=== PATIENT | female | born 1970 | race Caucasian/White ===

== ENCOUNTER 2020-08-01 09:18 | Emergency (ER) | payer MEDICARE, MEDICAID, SELFPAY ==
[2020-08-01 09:30] VITALS: BP 156/124; PULSE 74; RESP 16; TEMP 36.2; O2SAT 100
--- NOTE | 2020-08-01 09:38 | ED.EYEPROB ---
HPI - Eye Problem General Chief complaint: Eye Problems Stated complaint: eye pain/swelling/redness Time Seen by Provider: 08/01/20 09:39 Source: patient and RN notes reviewed Mode of arrival: ambulatory Limitations: no limitations History of Present Illness HPI Narrative: 49-year-old female presents concern for left eye redness, pain, crusty drainage for 3 days. Reports her eye was crusted shut when she woke up in the morning last 2 days, she had to use a warm wet washcloth to remove the crust. She denies wearing contact lenses, denies any eye injury, foreign body. She denies any cold symptoms, rhinorrhea, nasal congestion, fever, vision changes. MD chief complaint: eye redness Related Data Allergies Allergy/AdvReac Type Severity Reaction Status Date / Time Iodinated Contrast Media Allergy Severe throat Verified 08/01/20 09:46 closes latex Allergy Intermediate rash, Verified 08/01/20 09:46 throat feels weird Penicillins Allergy Mild rash Verified 08/01/20 09:46 amoxicillin Allergy Unknown THROAT Verified 08/01/20 09:46 SWELLING Dried Fruit Allergy Severe THROAT Uncoded 08/01/20 09:46 SWELLING Review of Systems Review of Systems: Narrative: CONSTITUTIONAL: Denies malaise, chills, sweats, or fever. EYES: Denies visual changes. Reports left eye irritation, redness, crusting discharge. ENT: Denies rhinorrhea, congestion, sinus pain, otalgia or sore throat. CARDIOVASCULAR: Denies chest pain, palpitations, or edema. RESPIRATORY: Denies cough or dyspnea. SKIN: Denies rash or itching. NEUROLOGIC: Denies headache. All systems reviewed & are unremarkable except as noted in HPI and below PMFSH Surgical History Surgical History Bariatric surgery status H/O: hysterectomy H/O: knee surgery History of cholecystectomy Family History Family History Mother Patient's mother is in good health Father Patient's father is in good health Social History Social History Smoking status: Former smoker Second hand tobacco smoke exposure: No Smoking end date: 07/26/12 Alcohol intake: never Gender identity (if verbalized by the patient): Female Comments At time of signature, agree with nursing past medical, surgical, social and family history. There is no relevant family history pertinent to the presenting complaint Exam Narrative: Exam Narrative: GENERAL: Well-appearing, well-nourished, and in no acute distress. HEAD: Normocephalic, atraumatic. EYES: PERRLA and EOMI. No nystagmus. Left eye sclera, conjunctivae injected, drainage noted. ENT: Nares clear. Mucous membranes moist NECK: Supple. CHEST: No respiratory distress. Speaks in full sentences. HEART: Regular rate and rhythm. SKIN: Warm, dry, no rash. NEURO: Alert and oriented x3. PSYCH: Normal mood and affect Course Course Emergency Course: Patient is aware of diagnosis, understands and agrees to treatment plan. Anticipatory guidance given. Patient agrees to follow-up as directed and is aware of reasons to seek care at the emergency department. Portions of this record may have been created with voice recognition software Vital Signs Vital signs: Vital Signs Temperature 97.2 F L 08/01/20 09:30 Pulse Rate 74 08/01/20 09:30 Respiratory Rate 16 08/01/20 09:30 Blood Pressure 156/124 H 08/01/20 09:30 Pulse Oximetry 100 08/01/20 09:30 Temperature 97.2 F L 08/01/20 09:30 Pulse Rate 74 08/01/20 09:30 Respiratory Rate 16 08/01/20 09:30 Blood Pressure 156/124 H 08/01/20 09:30 Pulse Oximetry 100 08/01/20 09:30 Reviewed. MDM - Eye Problem MDM Narrative Medical decision making narrative: Consideration of the following conditions may be warranted for the presenting problem, they are not final diagnoses: Bacterial conjunctivitis, allergic conjuncti
== END 2020-08-01 09:59 | disposition home or self-care (01) ==
PROVIDERS: Emergency Provider Nurse Practitioner; PCP Internal Medicine
DX: H10.32 Unspecified acute conjunctivitis, left eye (principal); Z87.891 Personal history of nicotine dependence; Z98.84 Bariatric surgery status
CPT/HCPCS: 99213; G0463

== ENCOUNTER 2020-09-16 09:07 | Outpatient (CLI) | payer MEDICARE, MEDICAID, SELFPAY ==
[2020-09-16 09:26] LABS: Basophils Absolute Auto 0.1 K/mm3 (0.0-0.1); Basophils Percent Auto 0.9 % (0.2-1.2); Eosinophils Absolute Auto 0.1 K/mm3 (0-0.3); Eosinophils Percent Auto 1.7 % (0-4.4); Hematocrit 40.1 % (37.0-47.0); Hemoglobin 12.7 g/dL (12.0-15.0); Immature Granulocyte Absolute 0.03 K/mm3 (0.00-0.031); Immature Granulocyte Percent A 0.4 % (0-0.5); Lymphocytes Percent Auto 21.8 % (18.3-44.2); Mean Corpuscular HGB Conc 31.7 g/dl (32-36); Mean Corpuscular Hemoglobin 26.7 pg (26-34); Mean Corpuscular Volume 84.4 fl (80-100); Mean Platelet Volume 8.9 fl (7.4-10.4); Monocytes Absolute Auto 0.7 K/mm3 (0.1-0.6); Monocytes Percent Auto 8.3 % (2.6-8.5); Neutrophils Absolute Auto 5.2 K/mm3 (1.3-6.7); Neutrophils Percent Auto 66.9 % (45.5-73.1); Platelet Count Result 359 k/mm3 (150-375); Red Blood Count 4.75 M/mm3 (4.2-5.4); Red Cell Distribution Width 14.7 % (11.5-14.5); White Blood Count 7.8 K/mm3 (4.5-10.0)
[2020-09-16 09:49] LABS: Alanine Aminotransferase 23 U/L (4-35); Albumin Level 3.9 g/dL (3.5-5.1); Alkaline Phosphatase 132 U/L (38-126); Anion Gap 3 mmol/L (8-16); Aspartate Amino Transferase 30 U/L (14-36); Bilirubin,Total 0.6 mg/dL (0.2-1.3); Blood Urea Nitrogen 9 mg/dL (7-17); Calcium 8.5 mg/dL (8.4-10.2); Carbon Dioxide 30 mmol/L (22-30); Chloride 106 mmol/L (98-107); Cholesterol 181 mg/dL (0-200); Estimated Glomerular Filt Rate > 60; Glucose 99 mg/dL (65-105); HDL Direct 58 mg/dL; Potassium 3.8 mmol/L (3.4-5.0); Sodium 139 mmol/L (137-145); Triglycerides 123 mg/dL (<150)
[2020-09-16 10:00] LABS: LDL Cholesterol Direct 100 mg/dL
[2020-09-16 10:55] LABS: Folic Acid 14.6 ng/mL (2.76->20)
== END 2020-09-16 09:08 | disposition home or self-care (01) ==
PROVIDERS: PCP Internal Medicine; Visit Provider Internal Medicine
DX: E53.8 Deficiency of other specified B group vitamins (principal); I10 Essential (primary) hypertension; R53.83 Other fatigue
CPT/HCPCS: 36415; 80053; 80061; 82607; 82746; 84443; 85025

== ENCOUNTER 2021-12-08 06:40 | Outpatient (CLI) | payer MEDICARE, SELFPAY ==
[2021-12-08 07:16] LABS: Basophils Absolute Auto 0.1 K/mm3 (0.0-0.1); Basophils Percent Auto 0.7 % (0.2-1.2); Eosinophils Absolute Auto 0.1 K/mm3 (0-0.3); Eosinophils Percent Auto 1.9 % (0-4.4); Hematocrit 39.3 % (37.0-47.0); Hemoglobin 12.4 g/dL (12.0-15.0); Immature Granulocyte Absolute 0.02 K/mm3 (0.00-0.031); Immature Granulocyte Percent A 0.3 % (0-0.5); Lymphocytes Percent Auto 23.4 % (18.3-44.2); Mean Corpuscular HGB Conc 31.6 g/dl (32-36); Mean Corpuscular Hemoglobin 26.4 pg (26-34); Mean Corpuscular Volume 83.8 fl (80-100); Mean Platelet Volume 9.5 fl (7.4-10.4); Monocytes Absolute Auto 0.7 K/mm3 (0.1-0.6); Monocytes Percent Auto 9.5 % (2.6-8.5); Neutrophils Absolute Auto 4.7 K/mm3 (1.3-6.7); Neutrophils Percent Auto 64.2 % (45.5-73.1); Platelet Count Result 326 k/mm3 (150-375); Red Blood Count 4.69 M/mm3 (4.2-5.4); Red Cell Distribution Width 14.5 % (11.5-14.5); White Blood Count 7.3 K/mm3 (4.5-10.0)
[2021-12-08 07:29] LABS: Alanine Aminotransferase 13 U/L (6-35); Albumin Level 3.6 g/dL (3.5-5.1); Alkaline Phosphatase 122 U/L (38-126); Anion Gap 1 mmol/L (8-16); Aspartate Amino Transferase 24 U/L (14-36); Bilirubin,Total 0.5 mg/dL (0.2-1.3); Blood Urea Nitrogen 8 mg/dL (7-17); Calcium 8.4 mg/dL (8.4-10.2); Carbon Dioxide 29 mmol/L (22-30); Chloride 108 mmol/L (98-107); Cholesterol 168 mg/dL (0-200); Estimated Glomerular Filt Rate > 60; Glucose 91 mg/dL (65-110); HDL Direct 51 mg/dL; Sodium 138 mmol/L (137-145); Triglycerides 72 mg/dL (<150)
[2021-12-08 07:40] LABS: LDL Cholesterol Direct 86 mg/dL
== END 2021-12-08 06:41 | disposition home or self-care (01) ==
PROVIDERS: PCP Internal Medicine; Visit Provider Internal Medicine
DX: R53.83 Other fatigue (principal); R73.9 Hyperglycemia, unspecified; I10 Essential (primary) hypertension; E53.8 Deficiency of other specified B group vitamins; R74.8 Abnormal levels of other serum enzymes
CPT/HCPCS: 36415; 80053; 80061; 84443; 85025

== ENCOUNTER 2023-02-18 09:50 | Outpatient (CLI) | payer MEDICARE, MEDICAID, SELFPAY ==
[2023-02-18 10:10] LABS: Basophils Absolute Auto 0.1 K/mm3 (0.0-0.1); Basophils Percent Auto 1.2 % (0.2-1.2); Eosinophils Absolute Auto 0.1 K/mm3 (0-0.3); Eosinophils Percent Auto 1.5 % (0-4.4); Hematocrit 42.3 % (37.0-47.0); Immature Granulocyte Absolute 0.02 K/mm3 (0.00-0.031); Immature Granulocyte Percent A 0.3 % (0-0.5); Lymphocytes Absolute Auto 1.57 K/mm3 (0.9-3.2); Mean Corpuscular HGB Conc 33.1 g/dl (32-36); Mean Corpuscular Hemoglobin 29.7 pg (26-34); Mean Corpuscular Volume 89.6 fl (80-100); Mean Platelet Volume 9.9 fl (7.4-10.4); Monocytes Absolute Auto 0.4 K/mm3 (0.1-0.6); Monocytes Percent Auto 6.9 % (2.6-8.5); Neutrophils Absolute Auto 3.7 K/mm3 (1.3-6.7); Neutrophils Percent Auto 63.1 % (45.5-73.1); Platelet Count Result 275 k/mm3 (150-375); Red Blood Count 4.72 M/mm3 (4.2-5.4); Red Cell Distribution Width 14.1 % (11.5-14.5); White Blood Count 5.8 K/mm3 (4.5-10.0)
[2023-02-18 10:20] LABS: Alanine Aminotransferase 25 U/L (6-35); Albumin Level 4.1 g/dL (3.5-5.1); Alkaline Phosphatase 91 U/L (38-126); Anion Gap 8 mmol/L (8-16); Aspartate Amino Transferase 27 U/L (14-36); Blood Urea Nitrogen 8 mg/dL (7-17); Calcium 8.9 mg/dL (8.4-10.2); Carbon Dioxide 29 mmol/L (22-30); Chloride 101 mmol/L (98-107); Cholesterol 155 mg/dL (0-200); Estimated Glomerular Filt Rate > 60; Glucose 81 mg/dL (65-110); HDL Direct 56 mg/dL; Potassium 3.9 mmol/L (3.4-5.0); Sodium 138 mmol/L (137-145); Triglycerides 61 mg/dL (<150)
[2023-02-18 10:31] LABS: LDL Cholesterol Direct 70 mg/dL
[2023-02-18 11:26] LABS: Folic Acid 6.4 ng/mL (2.76->20)
== END 2023-02-18 09:51 | disposition home or self-care (01) ==
PROVIDERS: PCP Internal Medicine; Visit Provider Physician Assistant
DX: I10 Essential (primary) hypertension (principal); R73.9 Hyperglycemia, unspecified; E53.8 Deficiency of other specified B group vitamins; R53.83 Other fatigue
CPT/HCPCS: 36415; 80053; 80061; 82607; 82746; 84443; 85025

== ENCOUNTER 2023-12-24 10:18 | Outpatient (CLI) | payer MEDICARE, MEDICAID, SELFPAY ==
--- NOTE | 2023-12-24 10:28 | ECG_ITS ---
[facility] [address] Test Date: 2023-12-24 Pat Name: Gaby Jiang Department: Room: Gender: F Welding Foreman: : 1970 Requested By: Porfirio Cruz Order Number: [id number] Reading MD: Duc Sanchez D.O. Measurements Intervals [place] Rate: 57 P: 48 NV: 160 QRS: -1 QRSD: 89 T: 13 QT: 448 QTc: 436 Interpretive Statements SINUS BRADYCARDIA LOW QRS VOLTAGE IN PRECORDIAL LEADS CONSIDER INFERIOR INFARCT, AGE INDETERMINATE ABNORMAL ECG No previous ECG available for comparison Electronically Signed On 12-24-2023 11:43:52 CDT by Duc Sanchez D.O.
== END 2023-12-24 10:19 | disposition home or self-care (01) ==
LOC: ANHCARD 10:21
PROVIDERS: PCP Internal Medicine; Visit Provider Anesthesiology
DX: Z01.818 Encounter for other preprocedural examination (principal); I10 Essential (primary) hypertension; R94.31 Abnormal electrocardiogram [ECG] [EKG]
CPT/HCPCS: 93005

== ENCOUNTER 2023-12-30 09:35 | Day surgery (SDC) | payer MEDICARE, MEDICAID, SELFPAY ==
--- NOTE | 2023-12-22 09:04 | SUR.PREOP ---
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 Pt states she has had no neurological symptoms since and does not follow with neurology. Pt states was told by neurology to contact them if ever started having neurological symptoms. Pt's medical history also states HTN and a previous MD. Pt states no longer has HTN and is not on medication for BP. Pt states as far as the MD that 20 years ago had an episode of chest pain and had a cardiac cath done which pt states showed no blockages. No chest pain or cardiac symptoms since. Pt does not follow with cardiology. Pt states no other medical problems and takes no home medications. This RN reviewed Pt's medical history with Dr. Kelly who states pt okay to have procedure done at [facility] but would like a pre-op EKG. Pt notified of EKG order and states will go get. Pt states no further questions at this time.
--- NOTE | 2023-12-29 07:42 | SUR.PREOP ---
Dr. Varner reviewed Pt's EKG results for pre-op testing regarding surgery for 12/30/23 at [facility]. Per Dr. Varner, Pt cleared for surgery at [facility].
--- NOTE | 2023-12-30 07:02 | WPDHPUPDATE1 ---
History and Physical Update Update Date/Time: 12/30/23 07:02 Patient seen and examined in pre-operative holding area. No interval change in medical history or symptoms. Patient recalls previous discussion of benefits and alternatives to procedure. Continues to desire to proceed with left volar wrist ganglion cyst excision. Reviewed procedure, post-op expectations and risks including but not limited to bleeding, infection, injury to tendon/nerve/vessel, decreased hand function, stiffness, RSD, no change or worsening of symptoms, recurrence. I discussed the possible use of assistants and their participation in the case. Patient stated understanding and signed the consent form wishing to proceed.
--- NOTE | 2023-12-30 07:03 | P.OP_ITS ---
Procedure Note - Detailed Date of Procedure 12/30/23 Pre-op Diagnosis Ganglion Cyst Left Wrist Post-op Diagnosis Same Procedure Performed left volar wrist ganglion cyst excision Surgeon Mirela Gutierrez MD Consumer Relations Complaint Clerk dallin hernandez pa-c Anesthesia MAC Description of Procedure INFORMED CONSENT: The patient was seen and examined and marked in the pre-op area.? The patient signed the consent form. PROCEDURE IN DETAIL:The patient taken back to OR on the stretcher in supine position. Time out performed with anesthesia, surgeon and staff agreeing on patient's name site and surgery to be performed SCDs were placed on the lower extremities and inflated. A tourniquet was placed on {left} upper extremity and antibiotics given IV After anesthesia administered sedation I injected {6}cc 1%lido with epi and 0.5% marcaine plain at the operative site The?{left upper extremity}?was prepped and draped in sterile fashion the??{left upper extremity} was? exsanguinated with Esmarch bandage and tourniquet inflated to 250mmHg I proceeded with making a longitudinal incision over the left wrist mass through skin and dermis with a 15 blade scalpel. I proceeded with using Littler scissors to spread to the subcutaneous tissue down to the cyst which was notably adherent to and overlying the radial artery. I proceeded with circumferential dissection around ganglion cyst down to the radiocarpal joint noting the stalk of the cyst went radial to the radial artery. The radial artery was protected throughout the procedure. I transected the stalk of the cyst at its base with bipolar cautery. I irrigated with normal saline. I proceeded with repairing the capsular defect with 4-0 Vicryl suture. 4-0 Monocryl was used for dermis and subcuticular closure. A dressing of Dermabond, 4x4, franklin, and a volar splint was applied for patient safety, security, and comfort and secured with an junior bandage after the tourniquet was let down noting the hand was warm and well perfused. The patient was then awaken from anesthesia and transferred to the recovery room in stable condition.? Complications - none EBL- 2cc Disposition - home in stable conditions dallin hernandez pa-c was essential for positioning, retraction, closure and dressing placement [facility] Billing Surgery - Charge Forward: Surgery Billing ([id number] for dallin)
[2023-12-30 10:05] VITALS: BP 143/84; PULSE 64; RESP 12; TEMP 37.2; O2SAT 99
--- NOTE | 2023-12-30 10:10 | WPDANESEPPF ---
Anes - Initial Pre Proc Eval Procedure: Operation Date: 12/30/23 11:30 Proposed Procedures p Excision Ganglion Cyst Left Wrist - Mirela Gutierrez MD Date/Time: 12/30/23 10:10 Surgeon: Mirela Gutierrez MD Pre Op Diagnosis: Ganglion Cyst Left Wrist Patient Data Age: 53 Gender: F Height: 1.55 m Weight: 60.25 kg Last Vital Signs Temp 37.2 C 12/30/23 10:05 Pulse 64 12/30/23 10:05 Resp 12 12/30/23 10:05 BP 143/84 H 12/30/23 10:05 Pulse Ox 99 12/30/23 10:05 O2 Del Method Room Air 12/30/23 10:05 Allergies Allergy/AdvReac Type Severity Reaction Status Date / Time Iodinated Contrast Media Allergy Severe throat Verified 12/30/23 10:02 closes latex Allergy Intermediate rash, Verified 12/30/23 10:02 throat feels weird Penicillins Allergy Mild rash Verified 12/30/23 10:02 amoxicillin Allergy Unknown THROAT Verified 12/30/23 10:02 SWELLING Dried Fruit Allergy Severe THROAT Uncoded 12/30/23 10:02 SWELLING Home Medications Medication Instructions Recorded Confirmed Type tramadol 50 mg tablet 50 mg PO Q6H PRN pain #12 tabs 12/30/23 Rx Patient hx anesthesia problems: none Family hx anesthesia problems: none Results Review: All pre-operative results and documents have been reviewed as part of the pre-operative evaluation. [facility] Past Medical History Medical History Anxiety and depression Bowel trouble Brain tumor inoperable brain tumor age 25 Breast asymmetry History of heart attack Screening mammogram, encounter for Surgical History Surgical History Bariatric surgery status (~2009) H/O: hysterectomy (~2010) H/O: knee surgery (~2010) History of cholecystectomy Family History Family History Mother Patient's mother is in good health Hypertension Diabetes mellitus type 2 Father Patient's father is in good health Social History Social History Smoking status: Never smoker Second hand tobacco smoke exposure: No Smoking end date: 07/26/12 Alcohol intake: never Substance use: never Substance use type: does not use Do You Feel Safe in your Home?: Yes Lack of Transportation: No Lack of Food: Never True Current Housing: I Have Housing Concerned About Future Housing: No Difficulty Paying Gas/Electric Bills: No Difficulty Paying for Meds: No Currently Unemployed: No Education: High School Diploma/GED Difficulty w/ Childcare or Family Care: No Living arrangements: other Additional living arrangements comments: single Occupation/Education: unemployed Additional occupation/education comments: disabled Gender identity (if verbalized by the patient): Female Sexual Orientation (if Verbalized by the Patient): Straight or Heterosexual Anes - Eval Final PreProcedure Day of Procedure 12/30/23 10:10 Patient weight: normal Heart: regular rate and rhythm Lungs: clear to auscultation Airway: Mallampati scale class II Neurological: alert and oriented Last oral intake: >/= 8 hours ASA classification: III Emergent: no Anesthetic plan: proceed Anesthesia type and monitoring: general GIVS and standard monitoring Results Review: All pre-operative results and documents have been reviewed as part of the pre-operative evaluation. Informed Consent: The patient's anesthetic plan and its attendant risks and benefits were discussed with the patient/family/POA. Questions were solicited and answers provided to the satisfaction of the patient/family/POA.
[2023-12-30] MEDS: CLINDAMYCIN 900 MG/NS 50 ML 900 MG/50 ML PIGGYBACK 50 MG IVPB (10:28)
[2023-12-30] MEDS: LACTATED RINGERS 1,000 ML 30 ML IV CONT (10:30)
--- NOTE | 2023-12-30 10:32 | SUR.PREOP ---
Late note 12/30/[address] Gutierrez regarding pt's allergies and what pre-op antibiotic he would like to order. Per Dr. Gutierrez pt to get 900mg of Clindamycin as pre-op antibiotic.
[2023-12-30] MEDS: LIDO 1%/EPINEPHRINE 1:100,000 10 ML VIAL 3 ML INFILTRATE (11:17)
[2023-12-30] MEDS: BUPivacaine HCL 0.5% 10 ML AMP INFILTRATE (11:17)
[2023-12-30 11:39] VITALS: BP 124/82; PULSE 68; RESP 16; O2SAT 97
[2023-12-30 12:09] VITALS: BP 144/92; PULSE 58; RESP 20; O2SAT 100
--- NOTE | 2023-12-30 12:19 | WPDANESPN ---
Anes - Prog Note Post-Op Date/Time: 12/30/23 12:19 Cardiovascular status: normal Respiratory status: normal Airway patency: baseline Mental status: baseline Post-Op hydration status: normal Vital Signs: Last Vital Signs Temp 37.2 C 12/30/23 10:05 Pulse 64 12/30/23 10:05 Resp 12 12/30/23 10:05 BP 143/84 H 12/30/23 10:05 Pulse Ox 99 12/30/23 10:05 O2 Del Method Room Air 12/30/23 10:05 Pain Score (VAS): 0 Patient Feedback: Patient satisfied with anesthetic care.
[2023-12-30 12:24] VITALS: BP 144/91; PULSE 59; RESP 20; O2SAT 99
== END 2023-12-30 12:42 | disposition home or self-care (01) ==
PROVIDERS: PCP Internal Medicine; Visit Provider Plastic Surgery
PROC: (CPT 25111; principal; 2023-12-30 11:30)
DX: M67.432 Ganglion, left wrist (principal)
CPT/HCPCS: 25111

== ENCOUNTER 2023-12-30 11:21 | Outpatient (NON) | payer MEDICARE, MEDICAID, SELFPAY | END 2023-12-30 11:22 | disposition home or self-care (01) | PROVIDERS: PCP Internal Medicine; Visit Provider Plastic Surgery | DX: M67.432 Ganglion, left wrist (principal) | CPT/HCPCS: 88305 ==

== ENCOUNTER 2025-03-11 16:49 | Emergency (ER) | payer MEDICARE, MEDICAID, SELFPAY ==
[2025-03-11 16:59] VITALS: BP 148/88; RESP 16; TEMP 36.8; O2SAT 97
--- NOTE | 2025-03-11 17:39 | PC.NURSE ---
EDP Dr. Malagon gave verbal order for silver nitrate
--- NOTE | 2025-03-11 19:42 | ED_ITS ---
HPI - Epistaxis General Chief complaint: Epistaxis Stated complaint: epistaxis Time Seen by Provider: 03/11/25 17:15 History of Present Illness HPI Narrative: Patient is a 54-year-old female who presents ER with epistaxis. Right nose. Began just prior to arrival. Underwent a procedure earlier in the week with remove the blood vessel that was causing epistaxis. She is unsure without doctor's name is but it was in [facility]. No difficulty breathing. No fevers chills or sweats. Related Data Home Medications ?Medication ?Instructions ?Recorded ?Confirmed ?Last Taken ?Type No Home Medications 11/27/24 11/27/24 Unknown History Allergies Allergy/AdvReac Type Severity Reaction Status Date / Time Iodinated Contrast Media Allergy Severe throat Verified 11/27/24 10:18 closes latex Allergy Intermediate rash, Verified 11/27/24 10:18 throat feels weird Penicillins Allergy Mild rash Verified 11/27/24 10:18 amoxicillin Allergy Unknown THROAT Verified 11/27/24 10:18 SWELLING Dried Fruit Allergy Severe THROAT Uncoded 11/27/24 10:18 SWELLING Review of Systems Constitutional: Constitutional: Reports no additional constitutional complaints ENT: Reports system reviewed and no additional complaints, except as d ocumented Cardiovascular: Cardiovascular: Reports no additional cardiovascular complaints Respiratory: Respiratory: Reports no additional respiratory complaints PMFSH Past Medical History Medical History Brain tumor inoperable brain tumor age 25 Bowel trouble History of heart attack Anxiety and depression Breast asymmetry Screening mammogram, encounter for Surgical History Surgical History History of cholecystectomy H/O: knee surgery (~2010) H/O: hysterectomy (~2010) Bariatric surgery status (~2009) Family History Family History Mother Patient's mother is in good health Hypertension Diabetes mellitus type 2 Father Patient's father is in good health Social History Social History Smoking status: Never smoker Second hand tobacco smoke exposure: No Smoking end date: 07/26/12 Alcohol intake: never Substance use: never Substance use type: does not use Current Housing: Decline to Answer Concerned About Future Housing: Decline to Answer Difficulty Paying Gas/Electric Bills: Decline to Answer Difficulty Paying for Meds: Decline to Answer Currently Unemployed: Decline to Answer Education: Decline to Answer Difficulty w/ Childcare or Family Care: Decline to Answer Living arrangements: other Additional living arrangements comments: single Occupation/Education: unemployed Additional occupation/education comments: disabled Gender identity (if verbalized by the patient): Female Sexual Orientation (if Verbalized by the Patient): Straight or Heterosexual Exam Narrative: GENERAL: Well-appearing, well-nourished, and in no acute distress. HEAD: Normocephalic, atraumatic. ENT: Mucous membranes moist. Anterior source of bleeding kesselbachs plexus right naris. Clot evacuated manually. CHEST: Clear to auscultation. No respiratory distress. HEART: Regular rate and rhythm. Normal peripheral pulses. EXTREMITIES: Normal range of motion. No edema. SKIN: Warm, dry, no rash. NEURO: Alert and oriented x3. PSYCH: Normal mood and affect. Course Course Emergency Course: Bleeding controlled with cautery. Appropriate for discharge home. Follow-up with her ENT. Vital Signs Vital signs: Vital Signs Temperature 98.2 F 03/11/25 16:59 Respiratory Rate 16 03/11/25 16:59 Blood Pressure 148/88 H 03/11/25 16:59 Pulse Oximetry 97 03/11/25 16:59 Temperature 98.2 F 03/11/25 16:59 Respiratory Rate 16 03/11/25 16:59 Blood Pressure 148/88 H 03/11/25 16:59 Pulse Oximetry 97 03/11/25 16:59 Procedures Epistaxis Control right: Epistaxis Control Date: 03/11/25 Direct Inspection: yes and anterior source identified Clots Removed by: blowing nose Cautery Used: silver nitrate Patient Tolerated Procedure: well Discharge Plan Discharge Clinical Impression: Epistaxis Patient Disposition: Home Condition: Stable Instructions: Nosebleed (ED) Additional Instructions: Return to the ER if you have severe uncontrolled bleeding that lasts longer than 20 minutes, you lose consciousness, or you are not able to breathe. After a severe episode of nosebleeding you may have a bowel movement that appears to have blood in it. This is due to the fact that you have swallowed a lot of blood. In order to prevent nosebleeds it is recommended that you use [place] nasal spray to increase moisture in your nose, you apply Vaseline as a barrier cream with a Q-tip, and that you use a humidifier/vaporizer in your bedroom at night. If you have oxymetazoline (Afrin) available, this can be used twice a day for no longer than 3 days. It can help control your bleeding. You may use claritin or zyrtec as nasal decongestants if your have a runny/stuffy nose. Patient Language: Nauruan Prescriptions: No Action No Home Medications Follow-up/Referrals: Noemi,JAELYN Campos [Primary Care Provider] - 1 Week
[2025-03-11 20:41] VITALS: BP 143/80; PULSE 83; RESP 14; O2SAT 99
[2025-03-11 20:42] VITALS: BP 143/80; PULSE 83; RESP 14; O2SAT 99
== END 2025-03-11 20:44 | disposition home or self-care (01) ==
PROVIDERS: Emergency Provider Emergency Medicine; PCP Physician Assistant
DX: R04.0 Epistaxis (principal); Z90.710 Acquired absence of both cervix and uterus; I25.2 Old myocardial infarction; F41.9 Anxiety disorder, unspecified; F32.A Depression, unspecified; Z98.84 Bariatric surgery status; Z87.891 Personal history of nicotine dependence; Z90.49 Acquired absence of other specified parts of digestive tract; Z98.890 Other specified postprocedural states
CPT/HCPCS: 30901; 99282